=== PATIENT | male | born 1960 | race Caucasian/White ===

== ENCOUNTER 2021-07-18 13:24 | Inpatient (IN) | payer OTHER ==
[~2021-07-18] VITALS: Ht 175.3 cm; Wt 106.6 kg
[~2021-07-18 13:24] MED LIST: IBUPROFEN 200 MG
[2021-07-18] MEDS ORDERED: SODIUM CHLORIDE 0.9% 1000ML 1,000 ML IV STA (13:46)
[2021-07-18] MEDS: ONDANSETRON HCL INJ 2MG/ML 2ML 2 MG/ML VIAL IV PRN (16:16)
[2021-07-18 16:28] LABS: BASOPHILS # (AUTO) 0.1 (0.0-0.1); BASOPHILS % 0.4 % (0.0-1.0); EOSINOPHILS # (AUTO) 0.3 (0.0-0.4); EOSINOPHILS % 0.9 % (0.0-6.0); HEMATOCRIT 39.3 % (38.2-49.6); HEMOGLOBIN 12.5 g/dL (14.0-18.0); LYMPHOCYTES # (AUTO) 2.4 (1.0-3.2); LYMPHOCYTES % 8.8 % (18.0-39.1); MEAN CORPUSCULAR HEMOGLOBIN 28.9 pg (28-32); MEAN CORPUSCULAR HGB CONC 31.8 g/dL (31-35); MONOCYTES # (AUTO) 2.9 (0.2-0.8); MONOCYTES % 10.5 % (4.4-11.3); NEUTROPHILS # (AUTO) 21.7 (2.1-6.9); NEUTROPHILS % 78.7 % (38.7-80.0); PLATELET COUNT 533 x10e3/uL (140-360); RED BLOOD COUNT 4.32 x10e6/uL (4.3-5.7); RED CELL DISTRIBUTION WIDTH 14.5 % (11.7-14.4)
[2021-07-18 16:30] LABS: CLARITY,URINE HAZY (CLEAR); COLOR,URINE AMBER (YELLOW); KETONES,URINE TRACE (NEGATIVE); LEUKOCYTE ESTERASE ,URINE MODERATE (NEGATIVE); NITRITE,URINE POSITIVE (NEGATIVE); PROTEIN,URINE DIPSTICK 1+ (NEGATIVE); URINE UROBILINOGEN 0.2 mg/dL (0.2 - 1)
[2021-07-18 16:44] LABS: BACTERIA,URINE MANY /HPF; EPITHELIAL CELLS,URINE RARE /LPF; RBC,URINE 0-5 /HPF (0-5)
[2021-07-18 16:49] LABS: ALBUMIN 3.1 g/dL (3.5-5.0); ALBUMIN/GLOBULIN RATIO 0.7 (0.8-2.0); ANION GAP 16.1 mmol/L (8-16); CALCIUM 8.8 mg/dL (8.4-10.2); CREATININE, SERUM 0.75 mg/dL (0.72-1.25); POTASSIUM 4.1 mmol/L (3.5-5.1)
[2021-07-18] MEDS ORDERED: SODIUM CHLORIDE 0.9% 1000ML 1,000 ML IV SCH (17:00)
[2021-07-18] MEDS ORDERED: CEFTRIAXONE 1 GM in SODIUM CHLORIDE 0.9% 50ML 50 ML IV ONE (17:00)
[2021-07-18] MEDS ORDERED: CEFTRIAXONE 1 GM VIAL IV ONE (17:00)
[2021-07-18] MEDS ORDERED: IOPAMIDOL 370 MG/ML 200 ML INFUS..BTL INJ ONE (17:36)
[2021-07-18] MEDS ORDERED: SODIUM CHLORIDE 0.9% 50ML 50 ML ONE (17:36)
[2021-07-18] MEDS ORDERED: ONDANSETRON HCL INJ 2MG/ML 2ML 2 MG/ML VIAL IV PRN (19:30)
[2021-07-18] MEDS ORDERED: IBUPROFEN 600 MG TAB PO NR (19:45)
[2021-07-18] MEDS: METRONIDAZOLE 500MG/NS 100ML IV SCH (21:17)
[2021-07-18] MEDS: SODIUM CHLORIDE 0.9% 1000ML 1,000 ML IV SCH (21:17)
[2021-07-18] MEDS ORDERED: MAGNESIUM HYDROXIDE 30 ML UDC PO PRN (23:30)
[2021-07-18] MEDS ORDERED: METOPROLOL TARTRATE INJ 1 MG/ML VIAL IV PRN (23:30)
[2021-07-18] MEDS ORDERED: HYDRALAZINE HCL 20 MG/ML VIAL IV PRN (23:30)
[2021-07-18] MEDS ORDERED: MAGNESIUM HYDROXIDE 30 ML UDC PO ONE (23:30)
[2021-07-18] MEDS ORDERED: ACETAMINOPHEN 1000 MG/100 ML IV PRN (23:30)
[2021-07-19] VITALS (9 sets, daily range): BP systolic 112–144; BP diastolic 66–76
[2021-07-19] MEDS ORDERED: BISACODYL 10 MG SUPP PR ONE (01:15)
[2021-07-19] MEDS: SENNA-S TABLET PO SCH ×3 (01:33→17:24)
[2021-07-19] MEDS: LEVOFLOXACIN 500MG/D5W 100ML 100 ML IV SCH (01:33)
[2021-07-19] MEDS: METRONIDAZOLE 500MG/NS 100ML IV SCH ×5 (05:09→18:00)
[2021-07-19] MEDS: SODIUM CHLORIDE 0.9% 1000ML 1,000 ML IV SCH ×2 (06:17→15:14)
[2021-07-19 06:27] LABS: BASOPHILS # (AUTO) 0.1 (0.0-0.1); BASOPHILS % 0.6 % (0.0-1.0); EOSINOPHILS # (AUTO) 0.4 (0.0-0.4); EOSINOPHILS % 1.7 % (0.0-6.0); HEMATOCRIT 35.9 % (38.2-49.6); HEMOGLOBIN 11.3 g/dL (14.0-18.0); LYMPHOCYTES # (AUTO) 2.4 (1.0-3.2); LYMPHOCYTES % 10.6 % (18.0-39.1); MEAN CORPUSCULAR HGB CONC 31.5 g/dL (31-35); MEAN CORPUSCULAR VOLUME 92.3 fL (81-99); MONOCYTES # (AUTO) 2.8 (0.2-0.8); MONOCYTES % 12.1 % (4.4-11.3); NEUTROPHILS # (AUTO) 16.9 (2.1-6.9); NEUTROPHILS % 74.3 % (38.7-80.0); PLATELET COUNT 481 x10e3/uL (140-360); RED BLOOD COUNT 3.89 x10e6/uL (4.3-5.7); RED CELL DISTRIBUTION WIDTH 14.6 % (11.7-14.4)
[2021-07-19 07:08] LABS: ALBUMIN 2.5 g/dL (3.5-5.0); ALBUMIN/GLOBULIN RATIO 0.7 (0.8-2.0); ANION GAP 10.3 mmol/L (8-16); CREATININE, SERUM 0.63 mg/dL (0.72-1.25); POTASSIUM 4.3 mmol/L (3.5-5.1)
[2021-07-19] MEDS: CEFTRIAXONE 1 GM in SODIUM CHLORIDE 0.9% 50ML 50 ML IV SCH (09:25)
[2021-07-19] MEDS ORDERED: PEG (High)/E-LYTE SOLN 4,000 ML BTL PO ONE (10:15)
[2021-07-19] MEDS: ACETAMINOPHEN 325 MG TAB PO PRN ×2 (17:31→23:43)
[2021-07-20] VITALS (7 sets, daily range): BP systolic 115–149; BP diastolic 55–88
[2021-07-20 00:29] LABS: % IRON SATURATION 5 % (15-50); IRON 14 ug/dL (65-175); TOTAL IRON BINDING CAPACITY 290 ug/dL (261-478); TRANSFERRIN 207 mg/dL (174-364)
[2021-07-20] MEDS: SODIUM CHLORIDE 0.9% 1000ML 1,000 ML IV SCH ×2 (00:30→03:55)
[2021-07-20] MEDS ORDERED: BISACODYL 5 MG TAB EC PO ONE ×4 (00:30→11:45)
[2021-07-20] MEDS ORDERED: ONDANSETRON HCL 4 MG ORAL DISINTEGRATING TAB PO PRN (02:30)
[2021-07-20] MEDS: LEVOFLOXACIN 500MG/D5W 100ML 100 ML IV SCH (03:54)
[2021-07-20] MEDS ORDERED: CITRATE OF MAGNESIA 300ML BOTTLE PO ONE ×2 (05:00)
[2021-07-20] MEDS: METRONIDAZOLE 500MG/NS 100ML IV SCH ×4 (05:10→17:03)
[2021-07-20] MEDS: ONDANSETRON HCL INJ 2MG/ML 2ML 2 MG/ML VIAL IV PRN (05:10)
[2021-07-20] MEDS: SENNA-S TABLET PO SCH ×2 (09:13→17:03)
[2021-07-20] MEDS: CEFTRIAXONE 1 GM in SODIUM CHLORIDE 0.9% 50ML 50 ML IV SCH (09:13)
[2021-07-20] MEDS: IRON SUCROSE 100 MG in SODIUM CHLORIDE 0.9% 100 ML 100 ML IV SCH (10:49)
[2021-07-20 11:40] LABS: ANION GAP 14.4 mmol/L (8-16); CALCIUM 7.1 mg/dL (8.4-10.2); CREATININE, SERUM 0.56 mg/dL (0.72-1.25); POTASSIUM 3.4 mmol/L (3.5-5.1)
[2021-07-20] MEDS: CYANOCOBALAMIN INJ 1,000 MCG/ML VIAL IM SCH (14:22)
[2021-07-20] MEDS: ACETAMINOPHEN 325 MG TAB PO PRN (20:40)
[2021-07-21] VITALS (8 sets, daily range): BP systolic 105–149; BP diastolic 53–104
[2021-07-21] MEDS: SODIUM CHLORIDE 0.9% 1000ML 1,000 ML IV SCH ×3 (00:12→16:17)
[2021-07-21] MEDS: METRONIDAZOLE 500MG/NS 100ML IV SCH ×4 (00:13→18:08)
[2021-07-21] MEDS ORDERED: BISACODYL 5 MG TAB EC PO ONE ×2 (00:15→00:50)
[2021-07-21] MEDS ORDERED: CITRATE OF MAGNESIA 300ML BOTTLE PO ONE (01:20)
[2021-07-21] MEDS: LEVOFLOXACIN 500MG/D5W 100ML 100 ML IV SCH (01:30)
[2021-07-21] MEDS: CEFTRIAXONE 1 GM in SODIUM CHLORIDE 0.9% 50ML 50 ML IV SCH (08:35)
[2021-07-21] MEDS: SENNA-S TABLET PO SCH ×2 (08:37→18:08)
[2021-07-21 09:21] LABS: BASOPHILS # (AUTO) 0.1 (0.0-0.1); BASOPHILS % 0.4 % (0.0-1.0); EOSINOPHILS # (AUTO) 0.1 (0.0-0.4); EOSINOPHILS % 0.3 % (0.0-6.0); HEMATOCRIT 33.4 % (38.2-49.6); HEMOGLOBIN 10.8 g/dL (14.0-18.0); LYMPHOCYTES # (AUTO) 1.5 (1.0-3.2); LYMPHOCYTES % 8.8 % (18.0-39.1); MEAN CORPUSCULAR HEMOGLOBIN 29.1 pg (28-32); MEAN CORPUSCULAR HGB CONC 32.3 g/dL (31-35); MONOCYTES # (AUTO) 1.8 (0.2-0.8); MONOCYTES % 10.8 % (4.4-11.3); NEUTROPHILS # (AUTO) 13.5 (2.1-6.9); NEUTROPHILS % 78.6 % (38.7-80.0); PLATELET COUNT 478 x10e3/uL (140-360); RED BLOOD COUNT 3.71 x10e6/uL (4.3-5.7); RED CELL DISTRIBUTION WIDTH 14.6 % (11.7-14.4)
[2021-07-21 09:57] LABS: ALBUMIN 2.4 g/dL (3.5-5.0); ALBUMIN/GLOBULIN RATIO 0.7 (0.8-2.0); CALCIUM 7.1 mg/dL (8.4-10.2); CREATININE, SERUM 0.55 mg/dL (0.72-1.25)
[2021-07-21] MEDS ORDERED: MAGNESIUM HYDROXIDE 30 ML UDC PO ONE ×2 (16:00→17:00)
[2021-07-21] MEDS: IRON SUCROSE 100 MG in SODIUM CHLORIDE 0.9% 100 ML 100 ML IV SCH (16:16)
[2021-07-21] MEDS: CYANOCOBALAMIN INJ 1,000 MCG/ML VIAL IM SCH (18:08)
[2021-07-21] MEDS: ACETAMINOPHEN 325 MG TAB PO PRN (22:30)
[2021-07-22] VITALS (8 sets, daily range): BP systolic 91–119; BP diastolic 55–80
[2021-07-22] MEDS ORDERED: BISACODYL 5 MG TAB EC PO ONE ×2 (00:15→01:15)
[2021-07-22] MEDS ORDERED: MAGNESIUM HYDROXIDE 30 ML UDC PO ONE (00:15)
[2021-07-22] MEDS ORDERED: SOD PHOSPHATE/SOD BIPHOSPHATE ENEMA 132 ML BTL PR ONE (01:00)
[2021-07-22] MEDS ORDERED: POTASSIUM CHLORIDE 10MEQ EA PO STA (01:24)
[2021-07-22] MEDS: LEVOFLOXACIN 500MG/D5W 100ML 100 ML IV SCH (01:30)
[2021-07-22] MEDS ORDERED: CITRATE OF MAGNESIA 300ML BOTTLE PO ONE ×2 (02:45→05:00)
[2021-07-22] MEDS: SODIUM CHLORIDE 0.9% 1000ML 1,000 ML IV SCH ×3 (03:00→22:54)
[2021-07-22] MEDS ORDERED: POTASSIUM CHLORIDE 10MEQ EA PO ONE (03:30)
[2021-07-22 06:39] LABS: BASOPHILS # (AUTO) 0.1 (0.0-0.1); BASOPHILS % 0.5 % (0.0-1.0); EOSINOPHILS # (AUTO) 0.2 (0.0-0.4); EOSINOPHILS % 1.1 % (0.0-6.0); HEMATOCRIT 33.2 % (38.2-49.6); HEMOGLOBIN 10.9 g/dL (14.0-18.0); LYMPHOCYTES # (AUTO) 1.7 (1.0-3.2); LYMPHOCYTES % 10.9 % (18.0-39.1); MEAN CORPUSCULAR HEMOGLOBIN 29.4 pg (28-32); MEAN CORPUSCULAR HGB CONC 32.8 g/dL (31-35); MEAN CORPUSCULAR VOLUME 89.5 fL (81-99); MONOCYTES # (AUTO) 1.7 (0.2-0.8); MONOCYTES % 11.1 % (4.4-11.3); NEUTROPHILS # (AUTO) 11.3 (2.1-6.9); NEUTROPHILS % 74.5 % (38.7-80.0); PLATELET COUNT 469 x10e3/uL (140-360); RED BLOOD COUNT 3.71 x10e6/uL (4.3-5.7); RED CELL DISTRIBUTION WIDTH 14.5 % (11.7-14.4)
[2021-07-22] MEDS: METRONIDAZOLE 500MG/NS 100ML IV SCH ×4 (06:40→20:49)
[2021-07-22] MEDS: ONDANSETRON HCL INJ 2MG/ML 2ML 2 MG/ML VIAL IV PRN (06:41)
[2021-07-22] MEDS ORDERED: ONDANSETRON HCL INJ 2MG/ML 2ML 2 MG/ML VIAL IV ONE ×2 (06:41)
[2021-07-22 06:54] LABS: ALBUMIN 2.4 g/dL (3.5-5.0); ALBUMIN/GLOBULIN RATIO 0.7 (0.8-2.0); ANION GAP 13.3 mmol/L (8-16); CALCIUM 7.1 mg/dL (8.4-10.2); CREATININE, SERUM 0.61 mg/dL (0.72-1.25); POTASSIUM 3.3 mmol/L (3.5-5.1)
[2021-07-22] MEDS: SENNA-S TABLET PO SCH ×2 (09:00→16:28)
[2021-07-22] MEDS: IRON SUCROSE 100 MG in SODIUM CHLORIDE 0.9% 100 ML 100 ML IV SCH (09:00)
[2021-07-22] MEDS: CYANOCOBALAMIN INJ 1,000 MCG/ML VIAL IM SCH (10:15)
[2021-07-22] MEDS: CEFTRIAXONE 1 GM in SODIUM CHLORIDE 0.9% 50ML 50 ML IV SCH (10:15)
[2021-07-22] MEDS ORDERED: SIMETHICONE 40 MG/0.6 ML BTL ONE (18:57)
[2021-07-22] MEDS: ACETAMINOPHEN 325 MG TAB PO PRN (22:54)
[2021-07-23] VITALS (8 sets, daily range): BP systolic 90–141; BP diastolic 62–79
[2021-07-23] MEDS: METRONIDAZOLE 500MG/NS 100ML IV SCH ×2 (01:06→05:47)
[2021-07-23] MEDS: LEVOFLOXACIN 500MG/D5W 100ML 100 ML IV SCH (01:54)
[2021-07-23] MEDS: CYANOCOBALAMIN INJ 1,000 MCG/ML VIAL IM SCH (09:07)
[2021-07-23] MEDS: CEFTRIAXONE 1 GM in SODIUM CHLORIDE 0.9% 50ML 50 ML IV SCH (09:11)
[2021-07-23] MEDS: SENNA-S TABLET PO SCH ×2 (09:11→16:04)
[2021-07-23] MEDS: IRON SUCROSE 100 MG in SODIUM CHLORIDE 0.9% 100 ML 100 ML IV SCH (09:11)
[2021-07-23] MEDS: SODIUM CHLORIDE 0.9% 1000ML 1,000 ML IV SCH (09:15)
[2021-07-23] MEDS ORDERED: TRAMADOL/APAP 37.5MG-325MG TAB PO PRN (09:45)
[2021-07-23] MEDS: METRONIDAZOLE 500 MG TAB PO SCH ×2 (13:31→22:07)
[2021-07-23] MEDS: POLYETHYLENE GLYCOL 3350 17 GM PACK PO SCH ×2 (13:31→16:04)
[2021-07-23] MEDS: PANTOPRAZOLE SOD 40 MG TABEC PO SCH (16:04)
[2021-07-23] MEDS ORDERED: CITRATE OF MAGNESIA 300ML BOTTLE PO STA (21:40)
[2021-07-23] MEDS ORDERED: BISACODYL 5 MG TAB EC PO STA (21:40)
[2021-07-23] MEDS ORDERED: BISACODYL 5 MG TAB EC PO ONE (22:15)
[2021-07-24] VITALS (8 sets, daily range): BP systolic 89–141; BP diastolic 55–89
[2021-07-24] MEDS: ONDANSETRON HCL INJ 2MG/ML 2ML 2 MG/ML VIAL IV PRN (01:26)
[2021-07-24] MEDS: LEVOFLOXACIN 500MG/D5W 100ML 100 ML IV SCH (01:40)
[2021-07-24] MEDS ORDERED: SODIUM CHLORIDE 0.9% 250ML 250 ML ONE (01:46)
[2021-07-24] MEDS ORDERED: CITRATE OF MAGNESIA 300ML BOTTLE PO ONE (05:00)
[2021-07-24] MEDS: METRONIDAZOLE 500 MG TAB PO SCH ×3 (06:00→21:56)
[2021-07-24] MEDS: PANTOPRAZOLE SOD 40 MG TABEC PO SCH ×2 (06:15→17:50)
[2021-07-24 07:01] LABS: ANION GAP 10.8 mmol/L (8-16); CREATININE, SERUM 0.65 mg/dL (0.72-1.25)
[2021-07-24 07:08] LABS: BASOPHILS # (AUTO) 0.1 (0.0-0.1); BASOPHILS % 0.9 % (0.0-1.0); EOSINOPHILS # (AUTO) 0.1 (0.0-0.4); EOSINOPHILS % 0.4 % (0.0-6.0); HEMATOCRIT 37.4 % (38.2-49.6); HEMOGLOBIN 11.9 g/dL (14.0-18.0); LYMPHOCYTES # (AUTO) 2.6 (1.0-3.2); LYMPHOCYTES % 17.4 % (18.0-39.1); MEAN CORPUSCULAR HEMOGLOBIN 29.1 pg (28-32); MEAN CORPUSCULAR HGB CONC 31.8 g/dL (31-35); MEAN CORPUSCULAR VOLUME 91.4 fL (81-99); MONOCYTES # (AUTO) 1.5 (0.2-0.8); MONOCYTES % 9.9 % (4.4-11.3); NEUTROPHILS # (AUTO) 9.8 (2.1-6.9); NEUTROPHILS % 66.3 % (38.7-80.0); PLATELET COUNT 489 x10e3/uL (140-360); RED BLOOD COUNT 4.09 x10e6/uL (4.3-5.7)
[2021-07-24 07:09] LABS: POTASSIUM 2.8 mmol/L (3.5-5.1)
[2021-07-24] MEDS: SENNA-S TABLET PO SCH ×2 (09:00→17:50)
[2021-07-24] MEDS: IRON-VITAMIN-MINERAL CAPSULE PO SCH ×2 (09:00→17:50)
[2021-07-24] MEDS: POLYETHYLENE GLYCOL 3350 17 GM PACK PO SCH ×2 (09:00→17:51)
[2021-07-24] MEDS: MAGNESIUM OXIDE 400 MG TAB PO SCH ×2 (09:47→17:56)
[2021-07-24] MEDS: POTASSIUM CHLORIDE 10MEQ EA PO SCH ×3 (09:47→17:48)
[2021-07-25] VITALS: BP 137/93
[2021-07-25] MEDS: LEVOFLOXACIN 500MG/D5W 100ML 100 ML IV SCH (02:25)
[2021-07-25 04:00] VITALS: BP 127/81
[2021-07-25] MEDS: METRONIDAZOLE 500 MG TAB PO SCH (06:00)
[2021-07-25 06:29] LABS: ANION GAP 12.6 mmol/L (8-16); CALCIUM 8.2 mg/dL (8.4-10.2); CREATININE, SERUM 0.67 mg/dL (0.72-1.25); PHOSPHORUS 2.1 MG/DL (2.3-4.7); POTASSIUM 3.6 mmol/L (3.5-5.1)
[2021-07-25 07:53] VITALS: BP 143/84
[2021-07-25 08:04] VITALS: BP 143/84
[2021-07-25] MEDS: POLYETHYLENE GLYCOL 3350 17 GM PACK PO SCH (09:06)
[2021-07-25] MEDS: SENNA-S TABLET PO SCH (09:06)
[2021-07-25] MEDS: IRON-VITAMIN-MINERAL CAPSULE PO SCH (09:07)
[2021-07-25] MEDS: MAGNESIUM OXIDE 400 MG TAB PO SCH (09:07)
[2021-07-25] MEDS: PANTOPRAZOLE SOD 40 MG TABEC PO SCH (09:07)
== END 2021-07-25 13:06 | disposition home or self-care (01) | DRG 389 ==
LOC: ER 14:00 → ERHOLD 19:38 → MED/SURG3 23:58
PROVIDERS: ADMIT Internal Medicine; ATTEND Internal Medicine
PROC: 02HV33Z Insertion of Infusion Device into Superior Vena Cava, Percutaneous Approach (ICD-10-PCS; 2021-07-20)
PROC: 0DB78ZX Excision of Stomach, Pylorus, Via Natural or Artificial Opening Endoscopic, Diagnostic (ICD-10-PCS; 2021-07-22)
PROC: 0DBP8ZX Excision of Rectum, Via Natural or Artificial Opening Endoscopic, Diagnostic (ICD-10-PCS; principal; 2021-07-22 16:00)
PROC: 0DB68ZX Excision of Stomach, Via Natural or Artificial Opening Endoscopic, Diagnostic (ICD-10-PCS; 2021-07-22 16:00)
DX: K56.41 Fecal impaction (principal); N39.0 Urinary tract infection, site not specified; N41.0 Acute prostatitis; G82.20 Paraplegia, unspecified; K62.6 Ulcer of anus and rectum; Z74.01 Bed confinement status; Z20.822 Contact with and (suspected) exposure to COVID-19; K44.9 Diaphragmatic hernia without obstruction or gangrene; K20.90 Esophagitis, unspecified without bleeding; K29.70 Gastritis, unspecified, without bleeding; K25.9 Gastric ulcer, unspecified as acute or chronic, without hemorrhage or perforation; K52.9 Noninfective gastroenteritis and colitis, unspecified; D64.9 Anemia, unspecified; E66.9 Obesity, unspecified; Z68.34 Body mass index [BMI] 34.0-34.9, adult
CPT/HCPCS: 36415; 36569; 43239; 45380; 71045; 74177; 74280; 80048; 80053; 81001; 82607; 82746; 83540; 83605; 83690; 83735; 84100; 84132; 84466; 85025; 85045; 87040; 87493; 88305; 88312; 99251; 99284; J0696; J1756; J1956; J2405; J3420; J7030; J7050; Q9967; U0002